=== PATIENT | male | born 1995 ===

== ENCOUNTER 2023-10-30 09:19 | Emergency (ER) | payer OTHER ==
[~2023-10-30] VITALS: Ht 167.6 cm; Wt 104.3 kg
[2023-10-30] MEDS ORDERED: Bactrim Ds Tab1 EACH PO (09:39)
== END 2023-10-30 09:34 | disposition home or self-care (01) ==
LOC: ER 09:19
DX: L02.01 Cutaneous abscess of face (principal); L02.11 Cutaneous abscess of neck
CPT/HCPCS: 99282